=== PATIENT | female | born 1965 | race Caucasian/White ===

== ENCOUNTER 2018-10-24 19:09 | Emergency (ER) | payer OTHER, MEDICAID ==
[~2018-10-24] VITALS: Ht 165.1 cm; Wt 72.6 kg
[2018-10-24 19:31] VITALS: BP 129/96
--- NOTE | 2018-10-24 19:34 | NUR ---
TO LOBBY A/W BED , XRAY AMBULATORY
--- NOTE | 2018-10-24 21:30 | NUR ---
PT AMBULATED TO BED 04.
[2018-10-24] MEDS ORDERED: KETOROLAC 60 MG/2 ML VIAL IM ONE (21:40)
--- NOTE | 2018-10-24 21:50 | NUR ---
PT CAME TO ER S/P MECHANICAL FALL C/O OF LEFT ARM AND SHOULDER PAIN. PER PT SHE WAS WALKING UP STAIRS 5 HOURS AGO AND FELL. DENIES HITTING HEAD OR LOSS OF CONSCIOUSNESS. PAIN LEVEL 10/10, ACHING PAIN. PT IS IN GAURDING POSITION AND UNABLE TO MOVE LEFT ARM. MED HX: HYPOTHYROIDISM AND HTN. SAFETY MEASURES IN PLACE. ERMD AT BEDSIDE.
--- NOTE | 2018-10-24 22:16 | NUR ---
APPLIED SPLINT AND SLING TO LEFT ARM. TOLERATED PROCEDURE WELL.
[2018-10-24 22:47] VITALS: BP 154/98
--- NOTE | 2018-10-24 22:47 | NUR ---
Patient discharged with v/s stable. Written and verbal after care instructions given and explained. Patient alert, oriented and verbalized understanding of instructions. Ambulatory with steady gait. All questions addressed prior to discharge. ID band removed. Patient advised to follow up with PMD. Rx of MOTRIN AND TRAMADOL WAS given. Patient educated on indication of medication including possible reaction and side effects. Opportunity to ask questions provided and answered.
== END 2018-10-24 22:46 | disposition home or self-care (01) ==
LOC: MED 19:09
DX: S52.002A Unspecified fracture of upper end of left ulna, initial encounter for closed fracture (principal); M25.512 Pain in left shoulder; Z88.0 Allergy status to penicillin; W01.0XXA Fall on same level from slipping, tripping and stumbling without subsequent striking against object, initial encounter; Y93.89 Activity, other specified; Y92.89 Other specified places as the place of occurrence of the external cause; Y99.8 Other external cause status
CPT/HCPCS: 29105; 73030; 73080; 96372; 99283; J1885